=== PATIENT | male | born 1960 | race Caucasian/White ===

== ENCOUNTER → 2019-12-01 09:58 | Outpatient (CLI) | payer OTHER, SELFPAY ==
--- NOTE | 2019-12-01 10:08 | EKG12_ITS ---
Test Reason : PRE OP Blood Pressure : / mmHG Vent. Rate : 071 BPM Atrial Rate : 071 BPM P-R Int : 176 ms QRS Dur : 094 ms QT Int : 366 ms P-R-T Axes : 056 031 018 degrees QTc Int : 397 ms Normal sinus rhythm Nonspecific T wave abnormality Confirmed by DEMARIO NGUYEN, RUDI ([id number]), newspaper editor JAELYN KRISHNA ([id number]) on 12/05/2019 1:01:43 PM Referred By: Nii Stephens Confirmed By:RUDI HANKS MD
== END ==
PROVIDERS: PCP Orthopaedic Surgery; Referring Provider Otolaryngology; Visit Provider Otolaryngology
DX: Z01.810 Encounter for preprocedural cardiovascular examination (principal)
CPT/HCPCS: 93005

== ENCOUNTER → 2019-12-02 15:42 | Outpatient (CLI) | payer OTHER, SELFPAY | PROVIDERS: PCP Orthopaedic Surgery; Referring Provider Otolaryngology; Visit Provider Otolaryngology | DX: U07.1 COVID-19 (principal) | CPT/HCPCS: 87635; C9803; U0003 ==

== ENCOUNTER → 2020-06-15 13:44 | Outpatient (CLI) | payer OTHER, SELFPAY ==
[2020-06-15 14:42] LABS: Hemoglobin 15.6 g/dL (13.0-16.5); Mean Corp Hgb Conc 33.2 g/dL (32-36); Mean Corpuscular Hgb 29.5 pg (27.0-32.0); Mean Platelet Vol. 9.8 fl (6.2-12.0); Platelet Count 264 K/mm3 (150-450); RBC Distribution Width CV 12.7 % (11.6-14.6); RBC Distribution Width SD 41.5 fl (35.1-43.9); Red Blood Count 5.28 M/mm3 (4.6-6.2); White Blood Count 5.6 K/mm3 (4.4-11.0)
[2020-06-15 14:57] LABS: Anion Gap 2 (5-15); BUN 13 mg/dL (7-18); BUN/Creat Ratio 14.1 RATIO (10-20); Calcium,Total 9.2 mg/dL (8.5-10.1); Chloride 102 mmol/L (98-107); Creatinine, Serum 0.92 mg/dL (0.70-1.30); EST Glomerular Filtration Rate 89 mL/min (>60); Est Glom Filt Rate - Afr Amer 108 mL/min (>60); Glucose 94 mg/dL (74-106); Potassium 3.7 mmol/L (3.5-5.1); Sodium Level 136 mmol/L (136-145)
== END ==
PROVIDERS: PCP Orthopaedic Surgery; Referring Provider Otolaryngology; Visit Provider Otolaryngology
DX: Z01.810 Encounter for preprocedural cardiovascular examination (principal); Z01.812 Encounter for preprocedural laboratory examination; Z20.822 Contact with and (suspected) exposure to COVID-19
CPT/HCPCS: 36415; 80048; 85027; 87635; C9803; U0002